=== PATIENT | male | born 1955 | race Caucasian/White ===

== ENCOUNTER 2017-03-30 20:21 | Inpatient (IN) | payer OTHER ==
[~2017-03-30] VITALS: Ht 170.2 cm; Wt 71.7 kg
[~2017-03-30 20:21] MED LIST: ASPI81CT89 PO; CLIN300C2 PO; CLOP75TA PO; DIGO-91 PO; FURO-570 PO; ISOS60TE PO; LEVO500P IV; LEVO500T6 PO; METO25TA PO; POTA10TA10 PO; SPIR50TA PO; VAS2.5 PO
[2017-03-30 20:30] VITALS: BP 154/98
[2017-03-30] MEDS ORDERED: KETOROLAC 30 MG/ML VIAL IVP ONE (21:00)
[2017-03-30] MEDS ORDERED: NACL 0.9% 1,000 ML IV ONE ×2 (21:00→23:10)
[2017-03-30 21:49] LABS: BASOPHILS # (AUTO) 0.1 K/uL (0.00-0.22); EOSINOPHILS # (AUTO) 0.2 K/uL (0-0.4); RED BLOOD CELL COUNT(AUTO) 4.38 MIL/uL (4.20-6.10)
[2017-03-30 21:53] LABS: BASOPHILS % (AUTO) 1.1 % (0.0-2.0); EOSINOPHILS % (AUTO) 1.6 % (0.0-4.0); HEMATOCRIT 41.4 % (36-52); HEMOGLOBIN 13.6 g/dL (12.0-18.0); LYMPHOCYTES % (AUTO) 8.3 % (20.5-51.1); MEAN CORPUSCULAR HEMOGLOBIN 31 pg (27-31); MEAN CORPUSCULAR HGB CONC 33 g/dL (33-37); MEAN CORPUSCULAR VOLUME 94 fL (80-94); MONOCYTES # (AUTO) 0.2 K/uL (0.8-1.0); PLATELET COUNT (AUTO) 546 K/uL (140-450); RED CELL DISTRIBUTION WIDTH 13.3 % (11.6-13.7); WHITE BLOOD COUNT (AUTO) 11.5 K/uL (4.8-10.8)
[2017-03-30] MEDS ORDERED: DICYCLOMINE HCL LIQUID 10 MG/5 ML UDC PO ONE (22:05)
[2017-03-30] MEDS ORDERED: LIDOCAINE VISCOUS 2% 20 ML UDC PO ONE (22:05)
[2017-03-30] MEDS ORDERED: ALUMINUM HYD/MAG/SIMETHICONE 30 ML UDC PO ONE (22:05)
[2017-03-30 22:06] LABS: ALANINE AMINOTRANSFERASE 41 U/L (16-63); ALBUMIN 3.6 g/dL (3.4-5.0); ALCOHOL, BLOOD < 3 mg/dL (<3); ALKALINE PHOSPHATASE 170 U/L (46-116); ANION GAP 18.3 (8-16); ASPARTATE AMINOTRANSFERASE 32 U/L (15-37); CALCIUM 10.3 mg/dL (8.5-10.1); CARBON DIOXIDE 18.4 mmol/L (21-32); CHLORIDE 99 mmol/L (98-107); CREATININE 3.8 mg/dL (0.7-1.3); GFR ARICAN-AMERICAN 21 mL/min (>90); GFR NON ARICAN-AMERICAN 17 mL/min (>90); GLUCOSE 126 mg/dL (74-106); POTASSIUM 4.7 mmol/L (3.5-5.1); SODIUM SERUM 131 mmol/L (136-145); TOTAL BILIRUBIN 0.8 mg/dL (0.0-1.0); TOTAL PROTEIN, SERUM 9.1 g/dL (6.4-8.2)
[2017-03-30 22:12] LABS: UREA NITROGEN, BLOOD 114 mg/dL (7-18)
[2017-03-30 22:17] LABS: URIC ACID 12.6 mg/dL (2.6-7.2)
[2017-03-30] MEDS ORDERED: HYDROcodone/APAP 5/325 MG 1 TAB TAB PO PRN (23:20)
[2017-03-30] MEDS ORDERED: ACETAMINOPHEN 325 MG TAB PO PRN (23:20)
[2017-03-30] MEDS ORDERED: LORazepam 2 MG/ML VIAL IVP PRN (23:20)
[2017-03-30] MEDS ORDERED: ONDANSETRON 4 MG/2 ML VIAL IVP PRN (23:20)
[2017-03-31] MEDS ORDERED: FURO-570 PO (01:29)
[2017-03-31] MEDS ORDERED: SIMV40TA1 PO (01:29)
[2017-03-31] MEDS ORDERED: VAS10 PO (01:29)
[2017-03-31] MEDS ORDERED: COL.6 PO (01:29)
[2017-03-31 07:34] LABS: BASOPHILS # (AUTO) 0.1 K/uL (0.00-0.22); BASOPHILS % (AUTO) 0.9 % (0.0-2.0); EOSINOPHILS # (AUTO) 0.2 K/uL (0-0.4); EOSINOPHILS % (AUTO) 2.4 % (0.0-4.0); HEMATOCRIT 35.9 % (36-52); HEMOGLOBIN 12.2 g/dL (12.0-18.0); LYMPHOCYTES # (AUTO) 0.9 K/uL (2.0-11.5); LYMPHOCYTES % (AUTO) 10.9 % (20.5-51.1); MEAN CORPUSCULAR HEMOGLOBIN 32 pg (27-31); MEAN CORPUSCULAR HGB CONC 34 g/dL (33-37); MEAN CORPUSCULAR VOLUME 94 fL (80-94); MONOCYTES # (AUTO) 0.5 K/uL (0.8-1.0); MONOCYTES % (AUTO) 5.6 % (1.7-9.3); NEUTROPHILS # (AUTO) 6.5 K/uL (1.8-7.7); NEUTROPHILS % (AUTO) 80.2 % (42.2-75.2); PLATELET COUNT (AUTO) 393 K/uL (140-450); RED BLOOD CELL COUNT(AUTO) 3.81 MIL/uL (4.20-6.10); RED CELL DISTRIBUTION WIDTH 13.2 % (11.6-13.7); WHITE BLOOD COUNT (AUTO) 8.2 K/uL (4.8-10.8)
[2017-03-31 07:49] LABS: MAGNESIUM 2.2 mg/dL (1.8-2.4); PHOSPHORUS 4.9 mg/dL (2.5-4.9)
[2017-03-31 07:52] LABS: ANION GAP 17.5 (8-16); CALCIUM 9.2 mg/dL (8.5-10.1); CREATININE 3.6 mg/dL (0.7-1.3); POTASSIUM 4.5 mmol/L (3.5-5.1)
[2017-03-31] MEDS: NACL 0.9% 1,000 ML IV SCH ×4 (09:36→19:20)
[2017-03-31] MEDS: COLCHICINE 0.6 MG TAB PO SCH ×2 (09:36→20:16)
[2017-03-31 10:04] VITALS: BP 157/94
[2017-03-31 11:44] VITALS: BP 106/78
[2017-03-31 16:00] VITALS: BP 135/96
[2017-03-31 20:00] VITALS: BP 110/80
[2017-03-31] MEDS ORDERED: ZOLPIDEM 5 MG TAB PO PRN (21:40)
[2017-03-31 22:18] LABS: APPEARANCE,URINE CLEAR (CLEAR); BILIRUBIN,URINE NEGATIVE (NEGATIVE); BLOOD, URINE TRACE-L (NEGATIVE); COLOR,URINE YELLOW (YELLOW); LEUKOCYTE ESTERASE ,URINE NEGATIVE (NEGATIVE); NITRITE, URINE NEGATIVE (NEGATIVE); PH,URINE 5.5 (5.0-9.0); PROTEIN,URINE NEGATIVE (NEGATIVE); UGLUCOSE NEGATIVE (NEGATIVE); UROBILINOGEN,URINE 0.2 EU/dL (0.2 - 1)
[2017-03-31 22:31] LABS: BACTERIA,URINE None Seen /HPF (None Seen); MUCUS,URINE 3+ /LPF (None Seen); RBC,URINE 0-5 (RARE) /HPF (0-5); SQUAMOUS EPITHELIAL CELL,UR 0-3 (FEW) /LPF (0-3 (FEW)); WBC,URINE 0-5 (RARE) /HPF (0-5)
[2017-04-01] VITALS: BP 138/85
[2017-04-01] MEDS: NACL 0.9% 1,000 ML IV SCH ×2 (01:25→11:20)
[2017-04-01 04:00] VITALS: BP 124/76
[2017-04-01 05:58] LABS: PHOSPHORUS 3.5 mg/dL (2.5-4.9)
[2017-04-01 06:02] LABS: ANION GAP 15.3 (8-16); CALCIUM 9.1 mg/dL (8.5-10.1); CARBON DIOXIDE 20.1 mmol/L (21-32); CREATININE 3.2 mg/dL (0.7-1.3); POTASSIUM 4.4 mmol/L (3.5-5.1); TOTAL BILIRUBIN 0.6 mg/dL (0.0-1.0); TOTAL PROTEIN, SERUM 7.1 g/dL (6.4-8.2)
[2017-04-01 06:09] LABS: BASOPHILS # (AUTO) 0.1 K/uL (0.00-0.22); BASOPHILS % (AUTO) 1.5 % (0.0-2.0); EOSINOPHILS # (AUTO) 0.1 K/uL (0-0.4); EOSINOPHILS % (AUTO) 1.6 % (0.0-4.0); HEMATOCRIT 34.1 % (36-52); HEMOGLOBIN 11.1 g/dL (12.0-18.0); LYMPHOCYTES # (AUTO) 0.9 K/uL (2.0-11.5); LYMPHOCYTES % (AUTO) 13.2 % (20.5-51.1); MEAN CORPUSCULAR HEMOGLOBIN 31 pg (27-31); MEAN CORPUSCULAR HGB CONC 33 g/dL (33-37); MEAN CORPUSCULAR VOLUME 95 fL (80-94); MONOCYTES # (AUTO) 0.2 K/uL (0.8-1.0); MONOCYTES % (AUTO) 3.5 % (1.7-9.3); NEUTROPHILS # (AUTO) 5.2 K/uL (1.8-7.7); NEUTROPHILS % (AUTO) 80.2 % (42.2-75.2); PLATELET COUNT (AUTO) 334 K/uL (140-450); RED BLOOD CELL COUNT(AUTO) 3.59 MIL/uL (4.20-6.10); RED CELL DISTRIBUTION WIDTH 13.7 % (11.6-13.7)
[2017-04-01 06:41] LABS: WHITE BLOOD COUNT (AUTO) 6.5 K/uL (4.8-10.8)
[2017-04-01 07:57] VITALS: BP 133/87
[2017-04-01] MEDS ORDERED: predniSONE 10 MG TAB PO SCH (09:00)
[2017-04-01] MEDS ORDERED: MUPIROCIN 2% OINT 22 GM TUBE TP SCH (11:00)
[2017-04-01] MEDS ORDERED: CHLORHEXADINE GLUC 2% CLOTH TP SCH (11:00)
[2017-04-01 12:00] VITALS: BP 146/82
[2017-04-01 16:00] VITALS: BP 140/82
[2017-04-01] MEDS ORDERED: PRED10TA6 PO (16:25)
[2017-04-01] MEDS ORDERED: PRED10TA5 PO (16:54)
[2017-04-01] MEDS ORDERED: FURO-572 PO (17:07)
== END 2017-04-01 17:35 | disposition home or self-care (01) | DRG 469 ==
LOC: MED 20:21 → MTU 23:24
PROVIDERS: ADMIT Hospitalist; ATTEND Hospitalist
DX: N17.9 Acute kidney failure, unspecified (principal); F03.90 Unspecified dementia, unspecified severity, without behavioral disturbance, psychotic disturbance, mood disturbance, and anxiety; I50.9 Heart failure, unspecified; I13.0 Hypertensive heart and chronic kidney disease with heart failure and stage 1 through stage 4 chronic kidney disease, or unspecified chronic kidney disease; N18.4 Chronic kidney disease, stage 4 (severe); N39.0 Urinary tract infection, site not specified; M10.9 Gout, unspecified; F12.10 Cannabis abuse, uncomplicated; F17.200 Nicotine dependence, unspecified, uncomplicated; F10.10 Alcohol abuse, uncomplicated; N18.9 Chronic kidney disease, unspecified
CPT/HCPCS: 36415; 71010; 76770; 80048; 80053; 81001; 83735; 84100; 84550; 84560; 85025; 87081; 96361; 96374; 99285; G0482; J1644; J1885; J7030; J7512; Q0092